=== PATIENT | female | born 1950 | race Caucasian/White ===

== ENCOUNTER → 2019-05-03 08:08 | Outpatient (CLI) | payer OTHER, SELFPAY ==
[2019-05-03 09:00] LABS: Add Manual Diff / Slide Review NO; Basophils Absolute Auto 0 /uL (0-100); Eosinophils Absolute Auto 500 /uL (0-450); Eosinophils Percent Auto 9.6 % (2-4); Hematocrit 39.2 % (36-46); Lymphocytes Absolute Auto 1600 /uL (1100-4500); Lymphocytes Percent Auto 33.1 % (25-40); Mean Corpuscular HGB Conc 33.2 % (30-36); Mean Corpuscular Hemoglobin 29.5 PG (26-34); Mean Corpuscular Volume 88.8 fL (80-100); Monocytes Absolute Auto 500 /uL (0-900); Monocytes Percent Auto 9.4 % (3-14); Neutrophils Absolute Auto 2300 /uL (1500-7000); Neutrophils Percent Auto 46.9 % (50-75); Platelet Count 303 X10^3/uL (150-400); Red Blood Cell Count 4.42 X10^6/uL (4.0-5.2); Red Cell Distribution Width 13.9 % (11.6-14.8)
[2019-05-03 10:01] LABS: Thyroid Stimulating Hormone 0.06 uIU/mL (0.47-4.68)
[2019-05-06 11:50] LABS: Free T4, Direct Thyroxine 0.73 ng/dL (0.78-2.19)
== END ==
PROVIDERS: PCP Family Medicine; Visit Provider Family Medicine
DX: E03.8 Other specified hypothyroidism (principal); E06.3 Autoimmune thyroiditis
CPT/HCPCS: 36415; 84439; 84443; 85025

== ENCOUNTER → 2019-05-28 12:09 | Outpatient (CLI) | payer OTHER, SELFPAY ==
[2019-05-28 13:15] LABS: Add Manual Diff / Slide Review NO; Basophils Absolute Auto 0 /uL (0-100); Basophils Percent Auto 0.8 % (0-2); Eosinophils Absolute Auto 300 /uL (0-450); Eosinophils Percent Auto 6.1 % (2-4); Hematocrit 40.2 % (36-46); Hemoglobin 13.2 g/dL (12.0-16.0); Lymphocytes Absolute Auto 1400 /uL (1100-4500); Lymphocytes Percent Auto 28.7 % (25-40); Mean Corpuscular HGB Conc 32.9 % (30-36); Mean Corpuscular Hemoglobin 29.3 PG (26-34); Mean Corpuscular Volume 88.9 fL (80-100); Monocytes Absolute Auto 400 /uL (0-900); Monocytes Percent Auto 8.4 % (3-14); Neutrophils Absolute Auto 2800 /uL (1500-7000); Platelet Count 306 X10^3/uL (150-400); Red Blood Cell Count 4.52 X10^6/uL (4.0-5.2); Red Cell Distribution Width 13.8 % (11.6-14.8)
[2019-05-28 13:34] LABS: Alanine Aminotransferase 20 IU/L (9-52); Albumin 4.3 g/dL (3.5-5.0); Albumin Globulin Ratio 1.6 (1.0-2.8); Alkaline Phosphatase 55 U/L (38-126); Aspartate Aminotransferase 22 IU/L (14-36); BUN Creatinine Ratio 18.6 (6-22); Bilirubin Total 0.3 mg/dL (0.2-1.3); Blood Urea Nitrogen 13 mg/dL (7-17); Calcium 9.5 mg/dL (8.4-10.2); Carbon Dioxide 29 mmol/L (22-32); Chloride 100 mmol/L (98-107); Estimated Glomerular Filt Rate > 60.0 mL/min (>60); Globulin 2.7 g/dL (1.7-4.1); Glucose 67 mg/dL (80-110); HEMOLYSIS < 15 (0-50); Potassium 4.1 mmol/L (3.4-5.1); Sodium 138 mmol/L (137-145)
[2019-05-28 13:35] LABS: C-Reactive Protein Quant < 0.5 mg/dL (<1.0); Rheumatoid Factor < 8.6 IU/mL (<12.0)
[2019-05-28 13:47] LABS: Erythrocyte Sedimentation Rate 7 MM/HR (0-20)
[2019-05-31 18:40] LABS: ANA Screen, IFA Negative (Negative)
== END ==
PROVIDERS: PCP Family Medicine; Visit Provider Family Medicine
DX: M06.9 Rheumatoid arthritis, unspecified (principal)
CPT/HCPCS: 36415; 80053; 85025; 85651; 86038; 86140; 86430

== ENCOUNTER → 2019-07-16 09:31 | Outpatient (CLI) | payer OTHER, SELFPAY ==
[2019-07-16 11:22] LABS: Free T4, Direct Thyroxine 0.72 ng/dL (0.78-2.19)
[2019-07-16 11:36] LABS: Thyroid Stimulating Hormone < 0.02 uIU/mL (0.47-4.68)
== END ==
PROVIDERS: PCP Family Medicine; Visit Provider Family Medicine
DX: E03.8 Other specified hypothyroidism (principal); E06.3 Autoimmune thyroiditis
CPT/HCPCS: 36415; 84439; 84443; 84481

== ENCOUNTER → 2019-09-07 09:25 | Outpatient (CLI) | payer OTHER, SELFPAY ==
[2019-09-07 11:18] LABS: Thyroid Stimulating Hormone 0.56 uIU/mL (0.47-4.68)
== END ==
PROVIDERS: PCP Family Medicine; Visit Provider Nurse Practitioner Family
DX: E03.8 Other specified hypothyroidism (principal); E06.3 Autoimmune thyroiditis
CPT/HCPCS: 36415; 84443

== ENCOUNTER → 2020-06-01 10:54 | Outpatient (CLI) | payer MEDICARE, SELFPAY ==
[2020-06-01 13:04] LABS: Free T3, Triiodothyronine Free 2.58 pg/mL (2.77-5.27); Free T4, Direct Thyroxine 0.64 ng/dL (0.78-2.19)
== END ==
PROVIDERS: PCP Family Medicine; Referring Provider Family Medicine; Visit Provider Family Medicine
DX: E03.8 Other specified hypothyroidism (principal); E06.3 Autoimmune thyroiditis
CPT/HCPCS: 36415; 84439; 84443; 84481

== ENCOUNTER → 2020-06-15 09:44 | Outpatient (CLI) | payer MEDICARE, SELFPAY ==
--- NOTE | 2020-06-15 | DI.US.S_ITS ---
PROCEDURE: US PELVIC COMPLETE INDICATIONS: PMB TECHNIQUE: Real-time scanning was performed of the pelvic organs, with image documentation. Additional endovaginal scanning was necessary due to incomplete visualization of the adnexal and endometrial structures by transabdominal scanning. COMPARISON: None. FINDINGS: Transabdominal scanning: Limited scanning through the kidneys shows no hydronephrosis. No pathologic free abdominal or pelvic fluid. Endovaginal scanning: Uterus: Uterus is normal in size at 7.4 x 2.6 x 4.4 cm. The endometrium measures 2 mm in combined thickness. Ovaries: The right ovary measures 1 x 1.2 x 2.2 cm. The left ovary measures 1.8 x 1.6 x 1.4 cm. The ovaries have a normal sonographic appearance. No adnexal masses are seen. IMPRESSION: The endometrial stripe is not thickened in this patient with this given history Dictated by: Harvinder Nicole M.D. on 06/15/2020 at 9:28 Approved by: Harvinder Nicole M.D. on 06/15/2020 at 9:31
== END ==
PROVIDERS: PCP Family Medicine; Referring Provider Family Medicine; Visit Provider Family Medicine
DX: N95.0 Postmenopausal bleeding (principal)
CPT/HCPCS: 76830; 76856

== ENCOUNTER → 2020-06-19 08:25 | Outpatient (CLI) | payer MEDICARE, SELFPAY ==
[2020-06-19 09:06] LABS: Add Manual Diff / Slide Review NO; Basophils Absolute Auto 100 /uL (0-100); Basophils Percent Auto 1.1 % (0-2); Eosinophils Absolute Auto 400 /uL (0-450); Eosinophils Percent Auto 8.4 % (2-4); Hematocrit 39.1 % (36-46); Hemoglobin 13.2 g/dL (12.0-16.0); Lymphocytes Absolute Auto 1700 /uL (1100-4500); Lymphocytes Percent Auto 36.4 % (25-40); Mean Corpuscular HGB Conc 33.8 % (30-36); Mean Corpuscular Hemoglobin 30.1 PG (26-34); Mean Corpuscular Volume 89.1 fL (80-100); Monocytes Absolute Auto 400 /uL (0-900); Monocytes Percent Auto 9.1 % (3-14); Neutrophils Absolute Auto 2100 /uL (1500-7000); Platelet Count 264 X10^3/uL (150-400); Red Blood Cell Count 4.39 X10^6/uL (4.0-5.2); Red Cell Distribution Width 13.7 % (11.6-14.8); White Blood Cell Count 4.6 X10^3/uL (4.5-11.0)
[2020-06-19 09:15] LABS: Alanine Aminotransferase 17 IU/L (<35); Albumin 4.3 g/dL (3.5-5.0); Albumin Globulin Ratio 1.6 (1.0-2.8); Alkaline Phosphatase 55 U/L (38-126); Aspartate Aminotransferase 25 IU/L (14-36); Bilirubin Total 0.5 mg/dL (0.2-1.3); Blood Urea Nitrogen 16 mg/dL (7-17); Calcium 9.4 mg/dL (8.4-10.2); Carbon Dioxide 29 mmol/L (22-32); Chloride 104 mmol/L (98-107); Estimated Glomerular Filt Rate > 60.0 mL/min (>60); Globulin 2.7 g/dL (1.7-4.1); Glucose 88 mg/dL (80-110); HEMOLYSIS < 15 (0-50); Potassium 4.6 mmol/L (3.4-5.1); Sodium 137 mmol/L (137-145)
[2020-06-19 09:27] LABS: Free T3, Triiodothyronine Free 2.85 pg/mL (2.77-5.27); Free T4, Direct Thyroxine 0.69 ng/dL (0.78-2.19)
[2020-06-19 09:41] LABS: Thyroid Stimulating Hormone 0.295 uIU/mL (0.47-4.68)
== END ==
PROVIDERS: PCP Family Medicine; Referring Provider Family Medicine; Visit Provider Family Medicine
DX: E03.8 Other specified hypothyroidism (principal); E06.3 Autoimmune thyroiditis; N95.0 Postmenopausal bleeding
CPT/HCPCS: 36415; 80053; 84439; 84443; 84481; 85025

== ENCOUNTER → 2020-08-07 14:12 | Outpatient (CLI) | payer MEDICARE, SELFPAY | PROVIDERS: PCP Family Medicine; Referring Provider Family Medicine; Visit Provider Family Medicine | DX: Z13.820 Encounter for screening for osteoporosis (principal); M85.88 Other specified disorders of bone density and structure, other site; Z78.0 Asymptomatic menopausal state; E03.8 Other specified hypothyroidism; E06.3 Autoimmune thyroiditis; M06.9 Rheumatoid arthritis, unspecified; Z82.62 Family history of osteoporosis | CPT/HCPCS: 77080 ==

== ENCOUNTER → 2021-06-10 09:07 | Outpatient (CLI) | payer OTHER, SELFPAY ==
[2021-06-10 09:59] LABS: Add Manual Diff / Slide Review NO; Basophils Absolute Auto 0 /uL (0-100); Basophils Percent Auto 0.8 % (0-2); Eosinophils Absolute Auto 300 /uL (0-450); Eosinophils Percent Auto 7.5 % (2-4); Hemoglobin 13.1 g/dL (12.0-16.0); Lymphocytes Absolute Auto 1200 /uL (1100-4500); Lymphocytes Percent Auto 32.4 % (25-40); Mean Corpuscular HGB Conc 33.5 % (30-36); Mean Corpuscular Hemoglobin 30.1 PG (26-34); Mean Corpuscular Volume 89.8 fL (80-100); Monocytes Absolute Auto 300 /uL (0-900); Monocytes Percent Auto 8.2 % (3-14); Neutrophils Absolute Auto 1900 /uL (1500-7000); Neutrophils Percent Auto 51.1 % (50-75); Platelet Count 265 X10^3/uL (150-400); Red Blood Cell Count 4.34 X10^6/uL (4.0-5.2); Red Cell Distribution Width 13.7 % (11.6-14.8); White Blood Cell Count 3.8 X10^3/uL (4.5-11.0)
[2021-06-10 10:23] LABS: Alanine Aminotransferase 22 IU/L (<35); Albumin 3.9 g/dL (3.5-5.0); Albumin Globulin Ratio 1.4 (1.0-2.8); Alkaline Phosphatase 55 U/L (38-126); Aspartate Aminotransferase 27 IU/L (14-36); BUN Creatinine Ratio 18.2 (6-22); Bilirubin Total 0.4 mg/dL (0.2-1.3); Blood Urea Nitrogen 12 mg/dL (7-17); C-Reactive Protein Quant < 0.5 mg/dL (<1.0); Calcium 9.7 mg/dL (8.4-10.2); Carbon Dioxide 28 mmol/L (22-32); Chloride 107 mmol/L (98-107); Cholesterol 255 mg/dL (140-199); Estimated Glomerular Filt Rate > 60.0 mL/min (>60); Globulin 2.7 g/dL (1.7-4.1); Glucose 94 mg/dL (80-110); HDL Cholesterol 77 mg/dL (40-60); HEMOLYSIS < 15 (0-50); LDL Cholesterol Calculated 160 mg/dL (<100); Potassium 4.3 mmol/L (3.4-5.1); Sodium 139 mmol/L (137-145); Total Protein 6.6 g/dL (6.3-8.2); Triglycerides 92 mg/dL (35-150)
[2021-06-10 10:24] LABS: Rheumatoid Factor < 8.6 IU/mL (<12.0)
[2021-06-10 10:38] LABS: Free T3, Triiodothyronine Free 2.95 pg/mL (2.77-5.27); Free T4, Direct Thyroxine 0.66 ng/dL (0.78-2.19); Vitamin D 25 Hydroxy (D3) 62.4 ng/mL (30.0-100.0)
[2021-06-10 10:51] LABS: Thyroid Stimulating Hormone 0.084 uIU/mL (0.47-4.68)
[2021-06-11 05:15] LABS: Thyroid Peroxidase Antibodies 198 IU/mL (0-34)
== END ==
PROVIDERS: PCP Family Medicine; Referring Provider Family Medicine; Visit Provider Family Medicine
DX: Z13.220 Encounter for screening for lipoid disorders (principal); E03.8 Other specified hypothyroidism; M85.80 Other specified disorders of bone density and structure, unspecified site; E06.3 Autoimmune thyroiditis; M06.00 Rheumatoid arthritis without rheumatoid factor, unspecified site; M06.9 Rheumatoid arthritis, unspecified
CPT/HCPCS: 36415; 80053; 80061; 82306; 84439; 84443; 84481; 85025; 86140; 86376; 86430

== ENCOUNTER → 2022-06-30 13:55 | Outpatient (CLI) | payer OTHER, SELFPAY ==
[2022-06-30 15:21] LABS: Add Manual Diff / Slide Review NO; Basophils Absolute Auto 0 /uL (0-100); Basophils Percent Auto 1.1 % (0-2); Eosinophils Absolute Auto 300 /uL (0-450); Eosinophils Percent Auto 7.3 % (2-4); Hemoglobin 12.4 g/dL (12.0-16.0); Lymphocytes Absolute Auto 1200 /uL (1100-4500); Lymphocytes Percent Auto 27.4 % (25-40); Mean Corpuscular HGB Conc 33.4 % (30-36); Mean Corpuscular Hemoglobin 29.7 PG (26-34); Mean Corpuscular Volume 88.8 fL (80-100); Monocytes Absolute Auto 300 /uL (0-900); Monocytes Percent Auto 7.4 % (3-14); Neutrophils Absolute Auto 2500 /uL (1500-7000); Neutrophils Percent Auto 56.8 % (50-75); Platelet Count 267 X10^3/uL (150-400); Red Blood Cell Count 4.16 X10^6/uL (4.0-5.2); Red Cell Distribution Width 13.6 % (11.6-14.8); White Blood Cell Count 4.4 X10^3/uL (4.5-11.0)
[2022-06-30 16:16] LABS: Alanine Aminotransferase 22 IU/L (<35); Albumin Globulin Ratio 1.4 (1.0-2.8); Alkaline Phosphatase 54 U/L (38-126); Aspartate Aminotransferase 29 IU/L (14-36); BUN Creatinine Ratio 21.6 (6-22); Bilirubin Total 0.2 mg/dL (0.2-1.3); Blood Urea Nitrogen 16 mg/dL (7-17); Calcium 8.5 mg/dL (8.4-10.2); Carbon Dioxide 28 mmol/L (22-32); Chloride 103 mmol/L (98-107); Estimated Glomerular Filt Rate > 60 mL/min (>60); Globulin 2.8 g/dL (1.7-4.1); Glucose 126 mg/dL (80-110); HEMOLYSIS < 15 (0-50); Potassium 3.7 mmol/L (3.4-5.1); Sodium 138 mmol/L (137-145); Total Protein 6.8 g/dL (6.3-8.2)
[2022-06-30 16:21] LABS: Free T3, Triiodothyronine Free 2.26 pg/mL (2.77-5.27); Free T4, Direct Thyroxine 0.61 ng/dL (0.78-2.19)
[2022-06-30 16:34] LABS: Thyroid Stimulating Hormone 1.58 uIU/mL (0.47-4.68)
== END ==
PROVIDERS: PCP Family Medicine; Referring Provider Family Medicine; Visit Provider Family Medicine
DX: M06.9 Rheumatoid arthritis, unspecified (principal); E03.8 Other specified hypothyroidism; E06.3 Autoimmune thyroiditis
CPT/HCPCS: 36415; 80053; 84439; 84443; 84481; 85025

== ENCOUNTER → 2022-08-04 13:57 | Outpatient (CLI) | payer OTHER, SELFPAY ==
[2022-08-05 13:46] LABS: Fecal Immunochemical Test Negative (Negative)
== END ==
PROVIDERS: PCP Family Medicine; Referring Provider Family Medicine; Visit Provider Family Medicine
DX: Z12.11 Encounter for screening for malignant neoplasm of colon (principal)
CPT/HCPCS: 82274

== ENCOUNTER → 2023-02-28 09:28 | Outpatient (CLI) | payer OTHER, SELFPAY ==
[2023-02-28 12:16] LABS: Thyroid Stimulating Hormone 0.348 uIU/mL (0.47-4.68)
[2023-02-28 12:40] LABS: Hep C Virus Ab w/Reflex Quant NEGATIVE s/c (NEGATIVE)
[2023-02-28 13:21] LABS: Erythrocyte Sedimentation Rate 6 MM/HR (0-20)
[2023-02-28 13:24] LABS: C-Reactive Protein Quant < 0.5 mg/dL (<1.0)
[2023-02-28 13:35] LABS: Rheumatoid Factor < 8.6 IU/mL (<12.0)
[2023-02-28 17:06] LABS: Free T4, Direct Thyroxine 0.68 ng/dL (0.78-2.19)
[2023-03-01 17:56] LABS: Thyroid Peroxidase Antibodies 296 IU/mL (0-34)
[2023-03-02 20:28] LABS: Anti Thyroglobulin Antibody 67.2 IU/mL (0.0-0.9)
== END ==
PROVIDERS: PCP Nurse Practitioner; Referring Provider Nurse Practitioner; Visit Provider Nurse Practitioner
DX: E03.8 Other specified hypothyroidism (principal); E06.3 Autoimmune thyroiditis; M06.9 Rheumatoid arthritis, unspecified; Z11.59 Encounter for screening for other viral diseases; Z15.89 Genetic susceptibility to other disease; Z79.899 Other long term (current) drug therapy; E78.2 Mixed hyperlipidemia
CPT/HCPCS: 36415; 84439; 84443; 85651; 86140; 86376; 86430; 86800; 86803

== ENCOUNTER → 2023-03-10 08:58 | Outpatient (CLI) | payer OTHER, SELFPAY ==
--- NOTE | 2023-03-10 09:41 | DI.DEXA.S_ITS ---
Bone Density Report Name: LEE MANDEL Age: 73 Sex: Female Ethnicity: White Date of : 1950 Indication: osteopenia; rheumatoid arthritis; Referring Provider: AILEEN GRANT Study: Bone densitometry was performed. Exam Date: March 10, 2023 Accession number: [id number] Bone Density: Region BMD T-score Z-score Classification AP Spine(L1-L4) 0.880 -1.5 0.8 Osteopenia Femoral Neck (Left) 0.684 -1.5 0.5 Osteopenia Total Hip (Left) 0.784 -1.3 0.4 Osteopenia Femoral Neck (Right) 0.703 -1.3 0.7 Osteopenia Total Hip (Right) 0.747 -1.6 0.1 Osteopenia Total Hip Mean 0.765 -1.5 0.3 Osteopenia World Health Organization criteria for BMD impression classify patients as: Normal (T-score at or above -1.0), Osteopenia (T-score between -1.0 and -2.5), or Osteoporosis (T-score at or below -2.5). 10-year Fracture Risk(1): Major Osteoporotic Fracture 14% Hip Fracture 2.7% Reported Risk Factors: [place] (), Neck BMD=0.684, BMI=24.9, rheumatoid arthritis (1) FRAX(R) Version 3.08. Fracture probability calculated for an untreated patient. Fracture probability may be lower if the patient has received treatment. Previous Exams: -- Region Exam Age BMD T-score BMD Change BMD Change Date g/cm2 vs Baseline vs Previous -- AP Spine (L1-L4) 03/10/2023 73 0.880 -1.5 0.028 (3.2%)# 0.028 (3.3%)# 08/07/2020 70 0.853 -1.8 Total Hip(Left) 03/10/2023 73 0.784 -1.3 0.030 (4.0%)# 0.030 (4.0%)# 08/07/2020 70 0.753 -1.5 Total Hip(Right) 03/10/2023 73 0.747 -1.6 -0.019 (-2.5%)# -0.019 (-2.5%)# 08/07/2020 70 0.766 -1.4 -- *Denotes significance at 95% confidence level, LSC for AP Spine = 0.022 g/cm2, LSC for Total Hip = 0.027 g/cm2 # Denotes dissimilar scan types or analysis methods Impression: The patient has low bone mass, based on the Right Total Hip T-score. The patient has an estimated ten-year risk of hip fracture of 2.7% and an estimated ten-year risk of major fracture of 14%, based on the WHO FRAX algorithm. No significant bone loss was observed. Discussion: BONE DENSITY IS LOW AT ONE OR MORE SKELETAL SITES. This patient's lowest T-score is low at one or more skeletal sites. It meets the World Health Organization's (WHO) criteria for ?low bone mass? (T-score between -1.0 and -2.5). The patient's 10-year risk of fracture as calculated by FRAX is less than the threshold where pharmacological therapy is recommended by the National Osteoporosis Foundation (NOF). However, all treatment decisions require clinical judgment and consideration of individual patient factors, including patient preferences, comorbidities, previous drug use, risk factors not captured in the FRAX model (e.g., frailty, falls, vitamin D deficiency, increased bone turnover, interval significant decline in bone density) and possible under or overestimation of fracture risk by FRAX. The patient should follow a healthful lifestyle (good nutrition with adequate calcium and vitamin D, and appropriate weight-bearing exercise). Follow-Up: Consider repeating this study in 2 to 3 years to reassess this patient's status, or sooner if there is some new clinical indication. Reported by: ABRAHAM BULLARD M.D. on 03/10/2023 9:51:00 AM.
[2023-03-10 11:09] LABS: Free T3, Triiodothyronine Free 3.61 pg/mL (2.77-5.27)
== END ==
PROVIDERS: PCP Nurse Practitioner; Referring Provider Nurse Practitioner; Visit Provider Nurse Practitioner
DX: M85.851 Other specified disorders of bone density and structure, right thigh (principal); E03.8 Other specified hypothyroidism; E06.3 Autoimmune thyroiditis; M06.9 Rheumatoid arthritis, unspecified
CPT/HCPCS: 36415; 77080; 84481

== ENCOUNTER → 2023-06-13 08:26 | Outpatient (CLI) | payer OTHER, SELFPAY ==
[2023-06-13 09:27] LABS: Free T3, Triiodothyronine Free 3.88 pg/mL (2.77-5.27)
[2023-06-13 09:44] LABS: Free T4, Direct Thyroxine 1.02 ng/dL (0.78-2.19); Thyroid Stimulating Hormone < 0.015 uIU/mL (0.47-4.68)
[2023-06-13 22:07] LABS: Thyroid Peroxidase Antibodies 306 IU/mL (0-34)
[2023-06-14 19:37] LABS: Anti Thyroglobulin Antibody 54.4 IU/mL (0.0-0.9)
== END ==
PROVIDERS: PCP Nurse Practitioner; Referring Provider Family Medicine; Visit Provider Family Medicine
DX: E03.8 Other specified hypothyroidism (principal); E06.3 Autoimmune thyroiditis
CPT/HCPCS: 36415; 84439; 84443; 84481; 86376; 86800

== ENCOUNTER → 2023-07-05 08:56 | Outpatient (CLI) | payer OTHER, SELFPAY ==
[2023-07-06 15:22] LABS: Fecal Immunochemical Test Negative (Negative)
== END ==
PROVIDERS: PCP Nurse Practitioner; Referring Provider Nurse Practitioner; Visit Provider Nurse Practitioner
DX: Z12.11 Encounter for screening for malignant neoplasm of colon (principal)
CPT/HCPCS: 82274

== ENCOUNTER → 2023-09-28 08:39 | Outpatient (CLI) | payer OTHER, SELFPAY ==
[2023-09-28 09:58] LABS: Alanine Aminotransferase 20 IU/L (<35); Albumin 3.8 g/dL (3.5-5.0); Albumin Globulin Ratio 1.5 (1.0-2.8); Alkaline Phosphatase 54 U/L (38-126); Aspartate Aminotransferase 25 IU/L (14-36); BUN Creatinine Ratio 22.4 (6-22); Bilirubin Total 0.6 mg/dL (0.2-1.3); Blood Urea Nitrogen 13 mg/dL (7-17); Calcium 9.4 mg/dL (8.4-10.2); Carbon Dioxide 27 mmol/L (22-32); Chloride 103 mmol/L (98-107); Cholesterol 182 mg/dL (140-199); Estimated Glomerular Filt Rate > 60 mL/min (>60); Globulin 2.6 g/dL (1.7-4.1); Glucose 87 mg/dL (80-110); HDL Cholesterol 61 mg/dL (40-60); HEMOLYSIS < 15 (0-50); LDL Cholesterol Calculated 111 mg/dL (<100); Potassium 4.3 mmol/L (3.4-5.1); Sodium 137 mmol/L (137-145); Total Protein 6.4 g/dL (6.3-8.2); Triglycerides 52 mg/dL (35-150)
[2023-09-28 10:10] LABS: Free T3, Triiodothyronine Free 2.76 pg/mL (2.77-5.27); Free T4, Direct Thyroxine 0.77 ng/dL (0.78-2.19)
[2023-09-28 10:23] LABS: Thyroid Stimulating Hormone 0.032 uIU/mL (0.47-4.68)
[2023-09-29 07:21] LABS: Thyroid Peroxidase Antibodies 296 IU/mL (0-34)
[2023-10-05 12:21] LABS: Triiodothyronine T3 Reverse 5.8
== END ==
PROVIDERS: PCP Nurse Practitioner; Referring Provider Family Medicine; Visit Provider Family Medicine
DX: Z15.89 Genetic susceptibility to other disease (principal); E03.8 Other specified hypothyroidism; E06.3 Autoimmune thyroiditis; M06.9 Rheumatoid arthritis, unspecified; Z79.899 Other long term (current) drug therapy; E78.2 Mixed hyperlipidemia
CPT/HCPCS: 36415; 80053; 80061; 84439; 84443; 84481; 84482; 86376

== ENCOUNTER → 2024-03-16 10:11 | Outpatient (CLI) | payer OTHER, SELFPAY ==
[2024-03-16 11:37] LABS: Free T4, Direct Thyroxine 0.51 ng/dL (0.78-2.19)
[2024-03-16 11:51] LABS: Thyroid Stimulating Hormone 0.182 uIU/mL (0.47-4.68)
[2024-03-17 07:20] LABS: Thyroid Peroxidase Antibodies 337 IU/mL (0-34)
== END ==
PROVIDERS: PCP Nurse Practitioner; Referring Provider Nurse Practitioner; Visit Provider Nurse Practitioner
DX: E03.8 Other specified hypothyroidism (principal); E06.3 Autoimmune thyroiditis
CPT/HCPCS: 36415; 84439; 84443; 84481; 86376

== ENCOUNTER → 2024-05-23 10:32 | Outpatient (CLI) | payer OTHER, SELFPAY ==
[2024-05-23 11:09] LABS: Hematocrit 38.5 % (36-46); Hemoglobin 13.1 g/dL (12.0-16.0); Mean Corpuscular HGB Conc 33.9 % (30-36); Mean Corpuscular Hemoglobin 30.2 PG (26-34); Mean Corpuscular Volume 88.8 fL (80-100); Platelet Count 265 X10^3/uL (150-400); Red Blood Cell Count 4.33 X10^6/uL (4.0-5.2); White Blood Cell Count 3.8 X10^3/uL (4.5-11.0)
[2024-05-23 11:38] LABS: Alanine Aminotransferase 22 IU/L (<35); Albumin 3.8 g/dL (3.5-5.0); Albumin Globulin Ratio 1.3 (1.0-2.8); Alkaline Phosphatase 53 U/L (38-126); Aspartate Aminotransferase 28 IU/L (14-36); BUN Creatinine Ratio 18.7 (6-22); Bilirubin Total 0.4 mg/dL (0.2-1.3); Blood Urea Nitrogen 14 mg/dL (7-17); Calcium 8.6 mg/dL (8.4-10.2); Carbon Dioxide 27 mmol/L (22-32); Chloride 107 mmol/L (98-107); Estimated Glomerular Filt Rate > 60 mL/min (>60); Globulin 2.9 g/dL (1.7-4.1); Glucose 88 mg/dL (80-110); HEMOLYSIS < 15 (0-50); Potassium 3.9 mmol/L (3.4-5.1); Sodium 136 mmol/L (137-145); Total Protein 6.7 g/dL (6.3-8.2)
[2024-05-23 12:11] LABS: Free T3, Triiodothyronine Free 4.57 pg/mL (2.77-5.27); Free T4, Direct Thyroxine 0.54 ng/dL (0.78-2.19)
[2024-05-23 12:25] LABS: Thyroid Stimulating Hormone 0.632 uIU/mL (0.47-4.68)
[2024-05-25 07:36] LABS: Thyroid Peroxidase Antibodies 247 IU/mL (0-34)
[2024-06-04 10:10] LABS: Triiodothyronine T3 Reverse 9.5 ng/dL (.)
== END ==
PROVIDERS: PCP Nurse Practitioner; Referring Provider Nurse Practitioner; Visit Provider Nurse Practitioner
DX: E03.8 Other specified hypothyroidism (principal); Z51.81 Encounter for therapeutic drug level monitoring; E06.3 Autoimmune thyroiditis; M06.9 Rheumatoid arthritis, unspecified; Z79.890 Hormone replacement therapy
CPT/HCPCS: 36415; 80053; 84439; 84443; 84481; 84482; 85027; 86376

== ENCOUNTER → 2024-07-19 09:49 | Outpatient (CLI) | payer OTHER, SELFPAY ==
[2024-07-19 11:26] LABS: TSH w/ Reflex to FT4 1.69 uIU/mL (0.47-4.68); Thyroid Stimulating Hormone 1.69 uIU/mL (0.47-4.68)
[2024-07-19 17:48] LABS: Free T3, Triiodothyronine Free 2.87 pg/mL (2.77-5.27)
[2024-07-20 09:09] LABS: Thyroid Peroxidase Antibodies 392 IU/mL (0-34)
== END ==
PROVIDERS: PCP Family Medicine; Referring Provider Nurse Practitioner; Visit Provider Nurse Practitioner
DX: E06.3 Autoimmune thyroiditis (principal); E03.8 Other specified hypothyroidism
CPT/HCPCS: 36415; 84439; 84443; 84481; 84482; 86376

== ENCOUNTER → 2024-10-02 08:42 | Outpatient (CLI) | payer OTHER, SELFPAY ==
[2024-10-02 10:04] LABS: Free T3, Triiodothyronine Free 3.08 pg/mL (2.77-5.27); Free T4, Direct Thyroxine 0.49 ng/dL (0.78-2.19)
[2024-10-02 10:18] LABS: Thyroid Stimulating Hormone 4.74 uIU/mL (0.47-4.68)
== END ==
PROVIDERS: PCP Family Medicine; Referring Provider Family Medicine; Visit Provider Family Medicine
DX: E03.8 Other specified hypothyroidism (principal); E06.3 Autoimmune thyroiditis
CPT/HCPCS: 36415; 84439; 84443; 84481

== ENCOUNTER → 2024-10-10 10:32 | Outpatient (CLI) | payer OTHER, SELFPAY ==
[2024-10-11 13:36] LABS: Fecal Immunochemical Test Negative (Negative)
== END ==
PROVIDERS: PCP Family Medicine; Referring Provider Family Medicine; Visit Provider Family Medicine
DX: Z12.11 Encounter for screening for malignant neoplasm of colon (principal)
CPT/HCPCS: 82274

== ENCOUNTER → 2025-02-12 09:52 | Outpatient (CLI) | payer OTHER, SELFPAY ==
[2025-02-12 10:55] LABS: Alanine Aminotransferase 30 IU/L (<35); Albumin 4.2 g/dL (3.5-5.0); Albumin Globulin Ratio 1.7 (1.0-2.8); Alkaline Phosphatase 52 U/L (38-126); Aspartate Aminotransferase 36 IU/L (14-36); BUN Creatinine Ratio 19.8 (6-22); Bilirubin Total 0.5 mg/dL (0.2-1.3); Blood Urea Nitrogen 17 mg/dL (7-17); Calcium 9.2 mg/dL (8.4-10.2); Carbon Dioxide 30 mmol/L (22-32); Chloride 103 mmol/L (98-107); Cholesterol 234 mg/dL (140-199); Estimated Glomerular Filt Rate > 60 mL/min (>60); Globulin 2.5 g/dL (1.7-4.1); Glucose 85 mg/dL (80-110); HDL Cholesterol 74 mg/dL (40-60); HEMOLYSIS < 15 (0-50); LDL Cholesterol Calculated 146 mg/dL (<100); Potassium 4.2 mmol/L (3.4-5.1); Sodium 137 mmol/L (137-145); Total Protein 6.7 g/dL (6.3-8.2); Triglycerides 68 mg/dL (35-150)
[2025-02-12 11:08] LABS: Add Manual Diff / Slide Review NO; Basophils Absolute Auto 0 /uL (0-100); Eosinophils Absolute Auto 500 /uL (0-450); Hemoglobin 13.8 g/dL (12.0-16.0); Lymphocytes Absolute Auto 1300 /uL (1100-4500); Lymphocytes Percent Auto 29.7 % (25-40); Mean Corpuscular HGB Conc 33.6 % (30-36); Mean Corpuscular Hemoglobin 30.3 PG (26-34); Mean Corpuscular Volume 90.1 fL (80-100); Monocytes Absolute Auto 400 /uL (0-900); Monocytes Percent Auto 8.4 % (3-14); Neutrophils Absolute Auto 2200 /uL (1500-7000); Neutrophils Percent Auto 48.9 % (50-75); Platelet Count 267 X10^3/uL (150-400); Red Blood Cell Count 4.55 X10^6/uL (4.0-5.2); Red Cell Distribution Width 13.8 % (11.6-14.8); White Blood Cell Count 4.5 X10^3/uL (4.5-11.0)
[2025-02-12 11:53] LABS: Free T3, Triiodothyronine Free 3.04 pg/mL (2.77-5.27); Free T4, Direct Thyroxine 0.53 ng/dL (0.78-2.19)
[2025-02-12 12:07] LABS: Thyroid Stimulating Hormone 1.72 uIU/mL (0.47-4.68)
[2025-02-13 07:09] LABS: Dehydroepiandrosterone Sulfate 11.9 ug/dL (13.9-142.8)
== END ==
PROVIDERS: PCP Family Medicine; Referring Provider Family Medicine; Visit Provider Family Medicine
DX: E03.8 Other specified hypothyroidism (principal); E06.3 Autoimmune thyroiditis; Z79.890 Hormone replacement therapy; E78.5 Hyperlipidemia, unspecified; Z15.89 Genetic susceptibility to other disease
CPT/HCPCS: 36415; 80053; 80061; 82627; 84439; 84443; 84481; 84482; 85025

== ENCOUNTER → 2025-05-17 09:06 | Outpatient (CLI) | payer OTHER, SELFPAY ==
[2025-05-17 11:47] LABS: Free T3, Triiodothyronine Free 2.84 pg/mL (2.77-5.27)
[2025-05-17 12:01] LABS: TSH w/ Reflex to FT4 0.60 uIU/mL (0.47-4.68)
== END ==
PROVIDERS: PCP Family Medicine; Referring Provider Family Medicine; Visit Provider Family Medicine
DX: E03.8 Other specified hypothyroidism (principal); E06.3 Autoimmune thyroiditis; Z79.890 Hormone replacement therapy
CPT/HCPCS: 36415; 82627; 84443; 84481